=== PATIENT | male | born 1990 | race Asian ===

== ENCOUNTER 2019-07-11 21:47 | Emergency (ER) | payer MEDICAID, OTHER ==
[~2019-07-11] VITALS: Ht 172.7 cm; Wt 80.0 kg
[2019-07-11 21:52] VITALS: BP 146/82
--- NOTE | 2019-07-11 23:06 | NUR ---
PT TO ROOM FROM LOBBY AT THIS TIME. FAMILY WITH PT. PT REMAINS SEATED IN WHEEL CHAIR FOR COMFORT. AWAITING MARLEN CHEEK.
[2019-07-11] MEDS ORDERED: METHOCARBAMOL 750 MG TABLET ONE (23:53)
[2019-07-11] MEDS ORDERED: KETOROLAC 30 MG/1 ML ONE (23:53)
[2019-07-12] MEDS ORDERED: KETOROLAC 30 MG/1 ML IM ONE
[2019-07-12] MEDS ORDERED: METHOCARBAMOL 750 MG TABLET PO ONE
== END 2019-07-12 00:47 | disposition home or self-care (01) ==
LOC: ED 23:50
DX: M54.5 Low back pain (principal); F17.210 Nicotine dependence, cigarettes, uncomplicated
CPT/HCPCS: 72110; 96372; 99283; 99406; J1885